=== PATIENT | male | born 1935 | race Caucasian/White ===

== ENCOUNTER → 2024-05-09 10:45 | Outpatient (REF) | payer MEDICARE, SELFPAY | LOC: HWRAD 10:45 | PROVIDERS: ATTENDING PHYSICIAN Internal Medicine Cardiovascular Disease; FAMILY PHYSICIAN Family Medicine | DX: I71.21 Aneurysm of the ascending aorta, without rupture (principal) | CPT/HCPCS: 71250 ==

== ENCOUNTER → 2024-06-01 10:43 | Outpatient (REF) | payer MEDICARE, SELFPAY | LOC: RCS 10:43 | PROVIDERS: ATTENDING PHYSICIAN Internal Medicine Cardiovascular Disease; FAMILY PHYSICIAN Family Medicine | DX: I35.0 Nonrheumatic aortic (valve) stenosis (principal) | CPT/HCPCS: 93306 ==

== ENCOUNTER 2025-01-15 17:04 | Emergency (ER) | payer MEDICARE, SELFPAY ==
[2025-01-15 17:18] VITALS: BP 171/74
--- NOTE | 2025-01-15 19:29 | ED.MUSCINJ ---
HPI-Injury
General
Chief Complaint: Fall
Source: patient
Exam Limitations: none
Time Seen by Provider: 01/15/25 18:59
History of Present Illness-Injury
Is this injury a work related problem?: No
Is pt an associate of [facility]/[place]?: No
Initial Injury comments:
Patient to the emergency department after trip and fall in his driveway at home. He hit the right side of his forehead on the pavement. No LOC. He sustained an abrasion to right forehead. Also notes abrasion to right lateral elbow and right
knee. He complains of pain to his right shoulder. Incident occurred just prior to arrival. He was brought to the emergency department by spouse and son.
Past History
Past History
ED Past Medical History: Asthma, Cancer (Colon cancer, skin cancer), GERD, HTN, Hypercholesterolemia, Other (Gout, peripheral neuropathy) and Other (Osteoarthritis, hearing loss)
ED Past Surgical History: Cholecystectomy
Social History
Tobacco: Former smoker
Alcohol: None
Personal:
Living: with family
Employment: Retired
Family History
Family History: Other (Noncontributory)
Review of Systems
Review of Systems
Allergies reviewed?: Yes
All Other Systems: ROS reviewed and negative except as documented in HPI and ROS
Constitutional: Reports no symptoms
EENT: Reports no symptoms
Respiratory: Reports no symptoms
Cardiac: Reports no symptoms
ABD/GI: Reports no symptoms
: Reports no symptoms
Musculoskeletal: Reports joint pain (Pain to right shoulder)
Skin: Reports other (Abrasion to right forehead right lateral elbow and right knee)
Neurological: Reports no symptoms
Psychiatric: Reports no symptoms
Musculoskeletal Injury Exam
Musculoskeletal Injury Exam
Right Shoulder:
Pain with Movement?: Moderate (Pain over distal end of right clavicle)
Tender to palpation?: Moderate (Tenderness over distal end of right clavicle)
Soft tissue swelling?: None
External deformity and angulation?: None
Joint effusion?: None
Contusion?: Moderate
Hematoma-local bleeding into tissue?: None
Strain- Sprain- Tear (Connective tissue injury)?: None
Crepitus with movement?: No
Joint instability?: No
Malalignment/deformity?: No
Range of motion: Limited
Distal skin color and temperature: normal-warm & good color
Capillary Refill: normal
Normal distal neurovascular exam?: Yes
Peripheral Pulses: radial (right): 3+
Skin Exam
Abrasion
Right Forehead:
Description of abrasion: superfical/clean
Right Lateral Elbow:
Description of abrasion: superfical/clean
Right Anterior Knee:
Description of abrasion: superfical/clean
Phy Exam
General Physical Exam
General Presentation: well appearing and mild distress
General age: appears stated age
General Skin: warm and dry
General Habitus: normal
General Mental: alert
Cardiovascular Exam
Cardiovascular Exam: regular rate/rhythm
Neurological Exam
Neurological Exam: alert, oriented x3, CN II-XII intact, no motor deficits, no sensory deficits, speech normal and normal gait
Musculoskeletal Exam
Musculoskeletal Exam: neuro vasc intact and other (Pain over distal end of right clavicle. Limited range of motion to right shoulder. Right upper extremity is neurovascularly intact)
Skin Exam
Skin Exam: normal color, warm/dry and no rash
Psychiatric Exam
Psychiatric Exam: normal mood/affect
Injury Course
Orders/Labs/Results
Orders:
Orders
01/15/25 17:25
Shoulder, Right, Trauma [CR Shoulder, Trauma - Right] Urgent
Comment:
Reason For Exam: pain after a fall
01/15/25 17:26
Cervical Spine wo Contrast CT [CT Cervical Spine W/o Iv Contr] Urgent
Comment:
Reason For Exam: fall with head injury
Head wo Contrast CT [CT Head W/o Iv Contrast] Urgent
Comment:
Reason For Exam: fall with head injury
Knee, Right 4 or More Views [CR Knee- Right 4 Or More View*] Urgent
Comment:
Reason For Exam: pain after a fall
01/15/25 19:27
Shoulder Immobilizer Right- Tx ONCE
*Radiology
Radiology exam reviewed: radiology read reviewed
*Pulse Oximetry
SaO2: 98
Oxygen Mode of Delivery: Room air
Patient hypoxic: no
*Critical Care Note
Total Time (30-74mins, 75-104mins- exclusive of procedures): Not Applicable
Update Note
Update Note:
Patient to the emergency department after trip and fall in his driveway at home just prior to arrival. He sustained an abrasion to his right forehead. No LOC. He also sustained superficial abrasions to his right lateral elbow and right anterior
knee. He has full range of motion to those joints. CT of head and neck without acute findings. X-ray of right shoulder demonstrates nondisplaced fracture to the distal portion of the right clavicle. He was placed in a shoulder immobilizer sling
and will be discharged home to follow-up with his orthopedic provider. Patient will continue to ice, Tylenol as needed for pain.
ED Attending Note
-
Portions of this chart may have been created with voice recognition software.� Occasional wrong word or��sound alike� substitutions may have occurred due to the inherent limitations of voice recognition software.
Discharge Plan
Departure
Patient Disposition: Home (Routine Discharge)
Date of Disposition: 01/15/25
Time of Disposition: 19:27
Patient with high blood pressure during this ER visit?: No
Condition: Good
Covid-19: Not Applicable
Discharge Problem:
Fracture of clavicle, Abrasion, multiple sites
Instructions: Clavicle fracture, Wound care - ED (DC), Abrasions - ED (DC), Cold therapy for pain
Prescriptions:
No Action
multivitamin [Daily Multiple] 1 EACH tablet
1 tab PO DAILY
clopidogrel 75 MG tablet
75 mg PO DAILY
omeprazole [Prilosec] 10 MG capsule,delayed release(DR/EC)
10 mg PO DAILY
verapamil 240 MG tablet extended release
240 mg PO DAILY
hydrochlorothiazide 25 MG tablet
50 mg PO DAILY
rosuvastatin 10 MG tablet
5 mg PO DAILY
Referrals:
David Encarnacion MD [Active, Orthopedics] - Call in 1-3 days for appt
Interventions
Interventions:
*Risk Screen - Suicide Last Done: 01/15/25 17:18
*General Assessment Last Done: 01/15/25 19:15
*Neglect/Abuse Screening Last Done: 01/15/25 17:18
*ED- Fall Risk Assessment Last Done: 01/15/25 19:14
*ED COVID-19 Vaccine History Last Done: 01/15/25 19:16
*ED Influenza Vaccine History Last Done: 01/15/25 19:16
*Nursing Disposition Last Done: 01/15/25 19:56
ED-Musculoskeletal Assessment Last Done: 01/15/25 19:53
ED- Neurological Assessment Last Done: 01/15/25 19:53
ED-Skin Assessment Last Done: 01/15/25 19:53
Discharge Date and Time
Discharge Date/Time: 01/15/25 19:56
Print Language: JORDANIAN
== END 2025-01-15 19:56 | disposition home or self-care (01) ==
LOC: EMR 17:04
PROVIDERS: EMERGENCY PHYSICIAN Student in an Organized Health Care Education/Training Program; FAMILY PHYSICIAN Family Medicine
DX: S42.034A Nondisplaced fracture of lateral end of right clavicle, initial encounter for closed fracture (principal); S00.81XA Abrasion of other part of head, initial encounter; S50.311A Abrasion of right elbow, initial encounter; S80.211A Abrasion, right knee, initial encounter; W01.198A Fall on same level from slipping, tripping and stumbling with subsequent striking against other object, initial encounter; Y93.01 Activity, walking, marching and hiking; Y92.008 Other place in unspecified non-institutional (private) residence as the place of occurrence of the external cause; I10 Essential (primary) hypertension; E78.00 Pure hypercholesterolemia, unspecified; J45.909 Unspecified asthma, uncomplicated; K21.9 Gastro-esophageal reflux disease without esophagitis; H91.90 Unspecified hearing loss, unspecified ear; G62.9 Polyneuropathy, unspecified; M10.9 Gout, unspecified; M19.90 Unspecified osteoarthritis, unspecified site; Z87.891 Personal history of nicotine dependence; Z85.038 Personal history of other malignant neoplasm of large intestine; Z85.828 Personal history of other malignant neoplasm of skin
CPT/HCPCS: 99284; 70450; 72125; 73030; 73564